=== PATIENT | male | born 1970 | race Caucasian/White ===

== ENCOUNTER 2021-03-07 11:09 | Outpatient (CLI) | payer BC, SELFPAY ==
[2021-03-07 20:35] LABS: Basophils Percent Auto 0.5 % (0.2-1.2); Eosinophils Absolute Auto 0.2 K/mm3 (0-0.3); Eosinophils Percent Auto 3.1 % (0-4.4); Hematocrit 44.8 % (42.0-52.0); Hemoglobin 14.4 g/dL (14.0-18.0); Immature Granulocyte Absolute 0.02 K/mm3 (0.00-0.031); Immature Granulocyte Percent A 0.3 % (0-0.5); Lymphocytes Absolute Auto 1.91 K/mm3 (0.9-3.2); Lymphocytes Percent Auto 30.9 % (18.3-44.2); Mean Corpuscular HGB Conc 32.1 g/dl (32-36); Mean Corpuscular Hemoglobin 30.1 pg (26-34); Mean Corpuscular Volume 93.5 fl (80-100); Mean Platelet Volume 11.1 fl (7.4-10.4); Monocytes Absolute Auto 0.4 K/mm3 (0.1-0.6); Monocytes Percent Auto 7.1 % (2.6-8.5); Neutrophils Absolute Auto 3.6 K/mm3 (1.3-6.7); Neutrophils Percent Auto 58.1 % (45.5-73.1); Platelet Count Result 203 k/mm3 (150-375); Red Blood Count 4.79 M/mm3 (4.6-6.20); Red Cell Distribution Width 13.4 % (11.5-14.5); White Blood Count 6.2 K/mm3 (4.5-10.0)
[2021-03-07 20:40] LABS: Alanine Aminotransferase 24 U/L (4-50); Albumin Level 4.3 g/dL (3.5-5.1); Alkaline Phosphatase 67 U/L (38-126); Anion Gap 6 mmol/L (8-16); Aspartate Amino Transferase 24 U/L (17-59); Bilirubin,Total 0.6 mg/dL (0.2-1.3); Blood Urea Nitrogen 15 mg/dL (9-20); Calcium 9.3 mg/dL (8.4-10.2); Carbon Dioxide 30 mmol/L (22-30); Chloride 100 mmol/L (98-107); Estimated Glomerular Filt Rate > 60; Glucose 96 mg/dL (65-110); Potassium 4.4 mmol/L (3.4-5.0); Sodium 136 mmol/L (137-145)
[2021-03-07 21:12] LABS: Prostate Specific Antigen 2.3 ng/mL (< OR = 4.0)
[2021-03-08 21:59] LABS: Hemoglobin A1C 5.7 % (<5.7)
== END 2021-03-07 11:10 | disposition home or self-care (01) ==
LOC: ANHBWCLAB 11:11
PROVIDERS: PCP Family Medicine; Visit Provider Family Medicine
DX: Z12.5 Encounter for screening for malignant neoplasm of prostate (principal); R73.9 Hyperglycemia, unspecified; Z00.00 Encounter for general adult medical examination without abnormal findings
CPT/HCPCS: 36415; 80053; 83036; 84153; 85025; G0103

== ENCOUNTER 2021-06-16 08:10 | Outpatient (CLI) | payer BC, SELFPAY ==
[2021-06-16 18:48] LABS: Hematocrit 43.9 % (42.0-52.0); Hemoglobin 13.8 g/dL (14.0-18.0); Mean Corpuscular HGB Conc 31.4 g/dl (32-36); Mean Corpuscular Hemoglobin 30.4 pg (26-34); Mean Corpuscular Volume 96.7 fl (80-100); Mean Platelet Volume 10.9 fl (7.4-10.4); Platelet Count Result 209 k/mm3 (150-375); Red Blood Count 4.54 M/mm3 (4.6-6.20); Red Cell Distribution Width 13.8 % (11.5-14.5); White Blood Count 5.4 K/mm3 (4.5-10.0)
[2021-06-16 18:56] LABS: Alanine Aminotransferase 33 U/L (4-50); Albumin Level 4.2 g/dL (3.5-5.1); Alkaline Phosphatase 71 U/L (38-126); Anion Gap 8 mmol/L (8-16); Aspartate Amino Transferase 31 U/L (17-59); Blood Urea Nitrogen 19 mg/dL (9-20); Calcium 8.7 mg/dL (8.4-10.2); Carbon Dioxide 26 mmol/L (22-30); Chloride 105 mmol/L (98-107); Estimated Glomerular Filt Rate > 60; Glucose 114 mg/dL (65-110); Potassium 4.2 mmol/L (3.4-5.0); Sodium 139 mmol/L (137-145)
[2021-06-16 19:06] LABS: Hemoglobin A1C 5.4 % (<5.7)
== END 2021-06-16 08:11 | disposition home or self-care (01) ==
LOC: ANHBWCLAB 08:11
PROVIDERS: PCP Family Medicine; Visit Provider Family Medicine
DX: R25.1 Tremor, unspecified (principal); R73.03 Prediabetes
CPT/HCPCS: 36415; 80053; 83036; 84443; 85027

== ENCOUNTER 2021-08-10 16:41 | Outpatient (CLI) | payer OTHER, SELFPAY ==
--- NOTE | ~2021-08-10 | MR_ITS ---
EXAMINATION: MR shoulder LT wo con DATE: 08/10/2021 17:19 INDICATION: Left shoulder pain TECHNIQUE: Magnetic resonance imaging (MRI) of the left shoulder was performed without intravenous co ntrast. Sequences included axial PD-weighted FS FSE, coronal oblique PD-weighted FS FSE, coronal obli que T2-weighted FS FSE, sagittal PD-weighted FS FSE, and sagittal T1-weighted SE. COMPARISON: Left shoulder radiographs dated 05/01/2021 FINDINGS: Coracoacromial arch: The acromion undersurface is curved in morphology (type II). The coracoacromial ligament is normal. M ild widening of the acromioclavicular joint space with changes likely prior distal clavicle resection . Rotator cuff: Suture anchors along the greater tuberosity on the footplate of the supraspinatus and infraspinatus t endons consistent with prior rotator cuff repair. Mild supraspinatus and infraspinatus tendinopathy w ithout evident residual/recurrent tear. The teres minor tendon is normal. The supraspinatus, infraspi natus and teres minor muscle bellies are normal. There is attenuation of the distal 5 cm the subscapu galdino tendon. There are foci of susceptibility artifact along the tendon near the level of the glenoi d where the tendon appears thicker. Finally there is moderate fatty atrophy and retraction of the sub cutaneous muscle belly. Appearance suggests prior subscapularis tendon tear repair with likely recurr ent tear and medial retraction although no measurable tear defect is appreciated. The bursal side of the tendon is intact and remains contiguous with the transverse humeral ligament. Biceps tendon, glenoid labrum and glenohumeral cartilage: Extra articular long head biceps tendon appears normal extending to a bicipital tenodesis with anchor ing screw at the cephalad aspect of the intertubercular groove. Postoperative change of prior anterio r labral tear repair with 3 suture anchors along the anterior rim of the glenoid. There is a tear yazan ng the posterior glenoid with 2 additional foci of susceptibility artifact without correlate on the p rior radiographs themselves related to labral repair but without suture anchors. Small frayed inferio r labrum consistent with additional degenerative tearing. Partial-thickness cartilage loss with anter ior and posterior predominance at the glenoid where it involves greater than 50% the cartilage thickn ess. Mild partial-thickness cartilage loss along the cephalad aspect of the humeral head. Small rubi nal osteophytes along the posterior to anteroinferior glenoid and along the inferomedial aspect of th e humeral head. Fluid: Physiologic amount of fluid in the glenohumeral joint and biceps tendon sheath. No loose osteochondr al bodies. Small amount of fluid in the subacromial/subdeltoid bursa consistent with mild bursitis. Bones: Normal marrow signal with no edema, fracture or pathologic marrow replacing process. IMPRESSION: 1. Mild to moderate glenohumeral osteoarthritis with change of prior labral repair along the anterior labrum and potentially also along the posterior labrum where there is an additional tear. Additional degenerative tearing along the anteroinferior labrum without repair. 2. Mild tendinopathy of the subscapularis, supraspinatus and infraspinatus tendons with intact appear ing tear of the supraspinatus and infraspinatus tendon and likely recurrent partial tear post repair of the subscapularis tendon as detailed above. Correlate with details of prior surgery and many are o utside imaging for comparison. 3. Mild subacromial/subdeltoid bursitis. 4. Change of prior distal clavicle resection and bicipital tenodesis. Reviewed, dictated and finalized at location B.
== END 2021-08-10 16:42 | disposition home or self-care (01) ==
PROVIDERS: PCP Family Medicine; Visit Provider Nurse Practitioner Family
DX: M19.012 Primary osteoarthritis, left shoulder (principal); M75.52 Bursitis of left shoulder
CPT/HCPCS: 73221

== ENCOUNTER 2021-11-14 06:52 | Outpatient (CLI) | payer OTHER, SELFPAY ==
--- NOTE | 2021-11-14 08:36 | WPDNEUROLOGY ---
Neurology EEG Report General Information Date of Study: 11/14/21 TEST Routine EEG DIAGNOSIS Tremors CONDITION OF RECORDING Awake, drowsy, and asleep EEG NUMBER [id number] CLINICAL HISTORY Patient reports he has been having episodes of coughing and then losing consciousness. Paperwork says he has tremors, when asked about that he says he only had tremors a couple of times. EEG DESCRIPTION During the awake state with eyes closed the background consists of 9 Hz posterior dominant rhythm which attenuates appropriately with eye opening. The recording is continuous. There is a well developed anterior-posterior gradient. No significant asymmetries of background activities are noted. With drowsiness there is was waxing and waning of the dominant rhythm with eventual replacement by a mixture of beta, alpha, and theta activity. As the patient enters stage II sleep, symmetrical spindles and K complexes are present. There are no epileptiform discharges or seizures during this recording. Photic stimulation did not elicit any abnormal response. IMPRESSION This is a normal routine EEG recorded in awake, drowsy, and asleep states. There are no electrographic seizures identified, nor are there any epileptiform discharges. Please note that a normal EEG cannot exclude a seizure disorder. Clinical correlation is recommended.
--- NOTE | 2021-11-14 11:00 | NEURO_ITS ---
Impression: # This is an abnormal study due to the presence of mild bilateral Carpal Tunnel Syndrome. # Needle/EMG exam was normal. # Clinical correlation recommended. Nerve Conduction Studies Anti Sensory Summary Table Stim Site NR Peak (ms) P-T Amp (?V) Site1 Site2 Delta-P (ms) Dist (cm) Jj (m/s) Left Median Anti Sensory (2-3nd Digit) Wrist 4.0 25.7 Wrist 2-3nd Digit 4.0 14.0 35 Wrist 4.0 22.7 Wrist 2-3nd Digit 4.0 14.0 35 Right Median Anti Sensory (2-3nd Digit) Wrist 3.9 15.2 Wrist 2-3nd Digit 3.9 14.0 36 Wrist 3.9 22.2 Wrist 2-3nd Digit 3.9 14.0 36 Left Radial Anti Sensory (Base 1st Digit) Wrist 2.4 18.3 Wrist Base 1st Digit 2.4 0.0 Right Radial Anti Sensory (Base 1st Digit) Wrist 2.3 39.1 Wrist Base 1st Digit 2.3 0.0 Left Ulnar Anti Sensory (5th Digit) Wrist 2.9 3.8 Wrist 5th Digit 2.9 14.0 48 Right Ulnar Anti Sensory (5th Digit) Wrist 2.9 3.2 Wrist 5th Digit 2.9 16.0 55 Motor Summary Table Stim Site NR Onset (ms) O-P Amp (mV) Site1 Site2 Delta-0 (ms) Dist (cm) Jj (m/s) Left Median Motor (Abd Poll Brev) Wrist 4.0 5.4 Elbow Wrist 4.2 23.0 55 Elbow 8.2 5.1 Right Median Motor (Abd Poll Brev) Wrist 3.8 9.2 Elbow Wrist 5.0 28.0 56 Elbow 8.8 8.2 Left Ulnar Motor (Abd Dig Minimi) Wrist 2.5 3.5 A Elbow Wrist 5.3 29.0 55 A Elbow 7.8 3.0 B Elbow Wrist 4.0 22.0 55 B Elbow 6.5 3.2 Right Ulnar Motor (Abd Dig Minimi) Wrist 2.4 3.6 A Elbow Wrist 6.6 30.0 45 A Elbow 9.0 2.9 B Elbow Wrist 4.6 21.0 46 B Elbow 7.0 2.4 F Wave Studies NR F-Lat (ms) L-R F-Lat (ms) Left Median (Mrkrs) (Abd Poll Brev) 28.21 1.64 Right Median (Mrkrs) (Abd Poll Brev) 26.57 1.64 Left Ulnar (Mrkrs) (Abd Dig Min) 27.91 0.46 Right Ulnar (Mrkrs) (Abd Dig Min) 27.45 0.46 EMG Side Muscle Nerve Root Ins Act Fibs Amp Dur Recrt Comment Right 1stDorInt Ulnar C8-T1 Nml Nml Nml Nml Nml Right Ext Indicis Radial (Post Int) C7-8 Nml Nml Nml Nml Nml Right Ext Digitorum Radial (Post Int) C7-8 Nml Nml Nml Nml Nml Right BrachioRad Radial C5-6 Nml Nml Nml Nml Nml Right PronatorTeres Median C6-7 Nml Nml Nml Nml Nml Right Abd Poll Brev Median C8-T1 Nml Nml Nml Nml Nml Left 1stDorInt Ulnar C8-T1 Nml Nml Nml Nml Nml Left Ext Indicis Radial (Post Int) C7-8 Nml Nml Nml Nml Nml Left Ext Digitorum Radial (Post Int) C7-8 Nml Nml Nml Nml Nml Left BrachioRad Radial C5-6 Nml Nml Nml Nml Nml Left PronatorTeres Median C6-7 Nml Nml Nml Nml Nml Left Abd Poll Brev Median C8-T1 Nml Nml Nml Nml Nml MTDD
== END 2021-11-14 06:53 | disposition home or self-care (01) ==
LOC: ANHNEURO 06:53
PROVIDERS: PCP Family Medicine; Visit Provider Psychiatry & Neurology Neurology
DX: R25.1 Tremor, unspecified (principal); G56.03 Carpal tunnel syndrome, bilateral upper limbs
CPT/HCPCS: 95816; 95886; 95911

== ENCOUNTER 2022-05-17 12:01 | Outpatient (CLI) | payer OTHER, SELFPAY ==
[2022-05-17 19:36] LABS: Alanine Aminotransferase 27 U/L (6-50); Albumin Level 4.5 g/dL (3.5-5.1); Alkaline Phosphatase 75 U/L (38-126); Anion Gap 6 mmol/L (8-16); Aspartate Amino Transferase 40 U/L (17-59); Bilirubin,Total 0.5 mg/dL (0.2-1.3); Blood Urea Nitrogen 14 mg/dL (9-20); Calcium 8.9 mg/dL (8.4-10.2); Carbon Dioxide 31 mmol/L (22-30); Chloride 103 mmol/L (98-107); Estimated Glomerular Filt Rate > 60; Glucose 99 mg/dL (65-110); Potassium 4.2 mmol/L (3.4-5.0); Sodium 140 mmol/L (137-145)
[2022-05-17 20:24] LABS: Hemoglobin A1C 5.4 % (<5.7)
[2022-05-17 21:09] LABS: Basophils Percent Auto 0.3 % (0.2-1.2); Eosinophils Absolute Auto 0.2 K/mm3 (0-0.3); Eosinophils Percent Auto 3.1 % (0-4.4); Hematocrit 44.1 % (42.0-52.0); Hemoglobin 14.1 g/dL (14.0-18.0); Immature Granulocyte Absolute 0.03 K/mm3 (0.00-0.031); Immature Granulocyte Percent A 0.4 % (0-0.5); Lymphocytes Absolute Auto 2.49 K/mm3 (0.9-3.2); Lymphocytes Percent Auto 33.6 % (18.3-44.2); Mean Corpuscular Hemoglobin 29.3 pg (26-34); Mean Corpuscular Volume 91.5 fl (80-100); Mean Platelet Volume 11.1 fl (7.4-10.4); Monocytes Absolute Auto 0.5 K/mm3 (0.1-0.6); Monocytes Percent Auto 6.5 % (2.6-8.5); Neutrophils Absolute Auto 4.2 K/mm3 (1.3-6.7); Neutrophils Percent Auto 56.1 % (45.5-73.1); Platelet Count Result 244 k/mm3 (150-375); Red Blood Count 4.82 M/mm3 (4.6-6.20); White Blood Count 7.4 K/mm3 (4.5-10.0)
== END 2022-05-17 12:02 | disposition home or self-care (01) ==
LOC: ANHBWCLAB 12:03
PROVIDERS: PCP Family Medicine; Visit Provider Family Medicine
DX: E11.9 Type 2 diabetes mellitus without complications (principal); Z00.00 Encounter for general adult medical examination without abnormal findings; R55 Syncope and collapse; G47.33 Obstructive sleep apnea (adult) (pediatric)
CPT/HCPCS: 36415; 80053; 83036; 85025

== ENCOUNTER 2023-12-23 22:36 | Emergency (ER) | payer OTHER, SELFPAY ==
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
--- NOTE | ~2023-12-23 | CT_ITS ---
Noncontrast CT scan of the cervical spine Technique: Multiple contiguous axial [address] images of the cervical spine were obtained and rec onstructed in 2D sagittal and coronal planes on the acquisition scanner. Dose reduction technique was used on this scan by utilizing automated exposure control, adjustment of the mA and/or kV according to patient size. The dose-length product (DLP) was 500.22 mGy-cm. Clinical History: Pain Findings: No acute fracture or subluxation. There is mild reversal normal cervical lordosis. There is severe degenerative disc narrowing from C3 through C7. There is extensive facet arthropathy at the c ervical spine. There is bilateral neural foraminal narrowing at C3-C4, C4-C5, C5 and C6, C6-C7. There is moderate to severe canal stenosis at C6-C7. There is moderate canal stenosis at C5-C6. There is p robable mild canal stenosis at C4-C5. No prevertebral soft tissue swelling. Impression: No fracture or subluxation of the cervical spine. Severe degenerative spondylosis, as above. Reviewed, dictated and finalized at location M. Impression: No fracture or subluxation of the cervical spine. Severe degenerative spondylosis, as above.
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
[2023-12-23 23:00] VITALS: BP 142/90; PULSE 71; RESP 17; TEMP 36.1; O2SAT 100
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
[2023-12-24] MEDS: ACETAMINOPHEN 500 MG TABLET 1000 MG PO (01:01)
[2023-12-24 02:20] VITALS: BP 138/88; PULSE 74; RESP 15; O2SAT 100
== END 2023-12-24 02:21 | disposition home or self-care (01) ==
PROVIDERS: Emergency Provider Physician Assistant; PCP Family Medicine
DX: S16.1XXA Strain of muscle, fascia and tendon at neck level, initial encounter (principal); R73.03 Prediabetes; Z87.891 Personal history of nicotine dependence; V49.40XA Driver injured in collision with unspecified motor vehicles in traffic accident, initial encounter
CPT/HCPCS: 70450; 72125; 72128; 72131; 99284; A9270

== ENCOUNTER 2024-01-03 12:37 | Outpatient (CLI) | payer OTHER, SELFPAY ==
--- NOTE | ~2024-01-03 | CT_ITS ---
CT Scan of the Chest without Contrast: Clinical Indication: Lung cancer screening, nicotine dependence Technique: Contiguous sections were acquired throughout the chest without intravenous contrast. Dose reduction technique was used on this scan by utilizing automated exposure control and iterative recon struction technique. The dose-length product (DLP) was 247.58 mGy-cm. Findings: There is no evidence of any significant mediastinal, hilar or axillary lymphadenopathy. The mediastin al soft tissues appear normal. There is no evidence of pleural or pericardial effusion. The lungs are clear. No pulmonary nodules or infiltrates are noted. Images through the upper abdomen reveal no abnormalities. Impression: Lung RADS 1: Negative. 12 month follow-up screening CT advised. Reviewed, dictated and finalized at location . Impression: Lung RADS 1: Negative. 12 month follow-up screening CT advised.
== END 2024-01-03 12:38 | disposition home or self-care (01) ==
LOC: MICIMG 12:38
PROVIDERS: PCP Family Medicine; Visit Provider Family Medicine
DX: Z12.2 Encounter for screening for malignant neoplasm of respiratory organs (principal); Z87.891 Personal history of nicotine dependence
CPT/HCPCS: 71271

== ENCOUNTER 2024-01-04 20:54 | Emergency (ER) | payer OTHER, SELFPAY ==
[2024-01-04] VITALS (7 sets, daily range): BP systolic 134–160; BP diastolic 80–96; PULSE 63–66; RESP 15–19; TEMP 36.7; O2SAT 97–99
--- NOTE | ~2024-01-04 | XR_ITS ---
XR chest 2V Ordering provider: Wendy Lundberg PA-C History: 53 years Male with . cp . Comparison: None. FINDINGS: MEDIASTINUM: The cardiac silhouette is not enlarged. LUNGS: No infiltrates, effusions or pneumothorax. Prominent markings in the lower lobes. OTHER: No free air under the diaphragm. IMPRESSION: Prominent markings in the lower lobes. Early pneumonitis cannot be excluded. Follow-up advised. Reviewed, dictated and finalized at location A. IMPRESSION: Prominent markings in the lower lobes. Early pneumonitis cannot be excluded. Fo llow-up advised.
--- NOTE | ~2024-01-04 | CT_ITS ---
Clinical Indication: Chest pain CT Scan of the Chest with Contrast: Technique: Contiguous sections were acquired throughout the chest after intravenous administration of 100 cc of Omnipaque 350. Dose reduction technique was used on this scan by utilizing automated expos ure control and iterative reconstruction technique. The dose-length product (DLP) was 859.16 mGy-cm. COMPARISON: 01/03/2024 Findings: There is no evidence of any significant mediastinal, hilar or axillary lymphadenopathy. There is no f illing defect in the pulmonary arterial tree to suggest pulmonary embolus. There is no evidence of ao rtic dissection or aneurysm. There is no evidence of pleural or pericardial effusion. The lungs are clear. No pulmonary nodules or infiltrates are noted. Images through the upper abdomen reveal no abnormalities. Impression: No evidence of pulmonary embolus, aortic dissection, or aortic aneurysm. Clear lungs. Reviewed, dictated and finalized at [facility]. Impression: No evidence of pulmonary embolus, aortic dissection, or aortic aneurysm. Clear lungs.
--- NOTE | 2024-01-04 20:54 | ECG_ITS ---
Test Date: 2024-01-04 20:58:56 Measurements Intervals [place] Rate: 65 P: 66 MA: 124 QRS: 48 QRSD: 106 T: 42 QT: 363 QTc: 377 Interpretive Statements SINUS RHYTHM NORMAL ELECTROCARDIOGRAM No previous ECG available for comparison Electronically Signed On 01-05-2024 09:00:06 CDT by Brandon Borja M.D.
[2024-01-04 22:37] LABS: Basophils Absolute Auto 0.1 K/mm3 (0.0-0.1); Basophils Percent Auto 0.4 % (0.2-1.2); Eosinophils Absolute Auto 0.4 K/mm3 (0-0.3); Hematocrit 40.6 % (42.0-52.0); Hemoglobin 13.4 g/dL (14.0-18.0); Immature Granulocyte Absolute 0.12 K/mm3 (0.00-0.031); Lymphocytes Percent Auto 25.6 % (18.3-44.2); Mean Corpuscular Hemoglobin 31.3 pg (26-34); Mean Corpuscular Volume 94.9 fl (80-100); Mean Platelet Volume 10.2 fl (7.4-10.4); Monocytes Absolute Auto 0.7 K/mm3 (0.1-0.6); Monocytes Percent Auto 5.7 % (2.6-8.5); Neutrophils Absolute Auto 7.5 K/mm3 (1.3-6.7); Neutrophils Percent Auto 64.3 % (45.5-73.1); Platelet Count Result 204 k/mm3 (150-375); Red Blood Count 4.28 M/mm3 (4.6-6.20); Red Cell Distribution Width 13.6 % (11.5-14.5); White Blood Count 11.7 K/mm3 (4.5-10.0)
[2024-01-04 22:50] LABS: INR 0.9; Prothrombin Time 12.5 Seconds (11.1-14.7)
[2024-01-04 22:51] LABS: Partial Thromboplastin Time 25.5 Seconds (22.3-36.8)
[2024-01-04 22:52] LABS: Alanine Aminotransferase 17 U/L (6-50); Albumin Level 3.8 g/dL (3.5-5.1); Alkaline Phosphatase 54 U/L (38-126); Anion Gap 3 mmol/L (4-12); Aspartate Amino Transferase 22 U/L (17-59); Bilirubin,Total 0.4 mg/dL (0.2-1.3); Blood Urea Nitrogen 23 mg/dL (9-20); Calcium 8.6 mg/dL (8.4-10.2); Carbon Dioxide 31 mmol/L (22-30); Chloride 102 mmol/L (98-107); Estimated CRCL calculation 99 ml/min; Estimated Glomerular Filt Rate > 60; Glucose 106 mg/dL (65-110); Lipase 78 U/L (23-300); Potassium 3.7 mmol/L (3.4-5.0); Sodium 136 mmol/L (137-145)
[2024-01-04 23:03] LABS: Troponin I < 0.012 ng/mL (0.000-0.034)
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
--- NOTE | 2024-01-04 23:43 | ECG_ITS ---
Test Date: 2024-01-04 23:49:06 Measurements Intervals [place] Rate: 59 P: 66 OR: 130 QRS: 55 QRSD: 106 T: 48 QT: 392 QTc: 389 Interpretive Statements SINUS BRADYCARDIA OTHERWISE NORMAL ECG Compared to ECG 01/04/2024 20:58:56 NO SIGNIFICANT CHANGE Electronically Signed On 01-05-2024 09:06:49 CDT by Brandon Borja M.D.
[2024-01-05] VITALS (11 sets, daily range): BP systolic 115–126; BP diastolic 76–79; PULSE 59–74; RESP 15–24; O2SAT 97–99
[2024-01-05 00:15] LABS: Troponin I < 0.012 ng/mL (0.000-0.034)
== END 2024-01-05 02:36 | disposition home or self-care (01) ==
PROVIDERS: Physician Assistant; Emergency Provider Emergency Medicine; PCP Family Medicine
DX: R07.9 Chest pain, unspecified (principal); Z87.891 Personal history of nicotine dependence
CPT/HCPCS: 36415; 71046; 71275; 80053; 83690; 84484; 85025; 85610; 85730; 93005; 99284; Q9967

== ENCOUNTER 2024-01-18 08:46 | Outpatient (CLI) | payer OTHER, SELFPAY ==
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
--- NOTE | ~2024-01-18 | MR_ITS ---
MRI of the cervical spine Clinical History: Cervicalgia Technique: Axial T2-weighted and gradient images, and sagittal T1-weighted, T2-weighted, and STIR tonja ges were acquired. Findings: There is no fracture or subluxation of the cervical spine. There is mild reversal normal ce rvical lordosis. No suspicious bone marrow signal abnormality seen. At C2-C3, there is mild to moderate degenerative disc narrowing. There is minimal disc osteophyte com plex and mild facet arthropathy. No central canal stenosis or cord compression. Neural foramina are p reserved. At C3-C4, there is advanced degenerative disc 9. Disc ossify complex results in mild canal stenosis a nd minimal flattening the ventral cord. There is bilateral neural foraminal narrowing, right worse th an left. At C4-C5, there is advanced degenerative disc narrowing. There is mild disc ossify complex with mild to moderate canal stenosis and minimal flattening the ventral cord. There is bilateral neural foramin al narrowing, mild overall degree. At C5-C6, there is advanced degenerative disc 9. Disc osteophyte complex results in moderate to sever e spinal canal stenosis with mild cord compression. There is bilateral neural foraminal narrowing. At C6-C7, there is advanced degenerative disc narrowing. Mild disc ossify complex results in moderate canal stenosis and minimal flattening the ventral cord. There is severe bilateral neural foraminal n arrowing. At C7-T1, there is disc osteophyte complex and facet arthropathy, resulting in moderate canal stenosi s and cord compression at this level. There is bilateral neural foraminal narrowing. No abnormal signal evident in the spinal cord. Paravertebral soft tissues are unremarkable. Impression: Severe degenerative spondylosis of the cervical spine, as detailed above. There is multilevel neural foraminal narrowing, canal stenosis, and mild cord compression/ventral flattening. Reversal of the normal cervical lordosis with extensive advanced degenerative disc narrowing. Reviewed, dictated and finalized at location M. R INSTALLER Impression: Severe degenerative spondylosis of the cervical spine, as detailed above. There is multilevel neural foraminal narrowing, canal stenosis, and mild cord compre ssion/ventral flattening. Reversal of the normal cervical lordosis with extensive advanced degenerative d isc narrowing.
== END 2024-01-18 08:47 | disposition home or self-care (01) ==
LOC: MICIMG 08:47
PROVIDERS: PCP Family Medicine; Visit Provider Nurse Practitioner Family
DX: M47.813 Spondylosis without myelopathy or radiculopathy, cervicothoracic region (principal); M47.812 Spondylosis without myelopathy or radiculopathy, cervical region; M48.02 Spinal stenosis, cervical region; M48.03 Spinal stenosis, cervicothoracic region; G95.20 Unspecified cord compression; M54.2 Cervicalgia; V87.7XXA Person injured in collision between other specified motor vehicles (traffic), initial encounter; Z85.89 Personal history of malignant neoplasm of other organs and systems
CPT/HCPCS: 70547; 72141

== ENCOUNTER 2024-03-24 07:01 | Outpatient (CLI) | payer OTHER, SELFPAY ==
--- NOTE | ~2024-03-24 | MR_ITS ---
EXAMINATION: MR lumbar spine wo con DATE: 03/24/2024 07:31 INDICATION: Lumbar radiculopathy. TECHNIQUE: Magnetic resonance imaging (MRI) of the lumbar spine was performed without intravenous con trast. Sequences included sagittal T2-weighted FSE, sagittal T2-weighted FS FSE, sagittal T1-weighted FSE, and axial T2-weighted FSE. COMPARISON: CT lumbar spine 12/24/2023 FINDINGS: There is 2 mm retrolisthesis of L3 on L4. There is mild chronic anterior wedging of T12 bruno tebral body. There is mildly decreased disc height at L2-L3 and moderately decreased disc height at L 3-L4, L4-L5, and L5-S1. The distal spinal cord signal intensity is normal. The conus medullaris is at L1. The following disc levels are specifically discussed: L1-L2: The disc does not extend beyond the endplate margin. There is mild bilateral facet joint osteo arthritis. There is no neural foraminal stenosis. There is no central canal stenosis. L2-L3: The disc is bulging and has an annular fissure. There is mild right and moderate left facet ermelinda int osteoarthritis. There is mild bilateral neural foraminal stenosis. There is mild central canal st enosis. L3-L4: The disc is bulging and has an annular fissure. There is mild bilateral facet joint osteoarthr itis. There is mild bilateral neural foraminal stenosis. There is mild central canal stenosis. L4-L5: The disc is bulging and has an annular fissure. There is mild bilateral facet joint osteoarthr itis. There is mild bilateral neural foraminal stenosis. There is mild central canal stenosis. L5-S1: The disc is bulging and has an annular fissure. There is severe bilateral facet joint osteoart hritis. There is mild bilateral neural foraminal stenosis. There is mild central canal stenosis. IMPRESSION: 1. Moderate lumbar spondylosis, stable from 12/24/2023. Reviewed, dictated and finalized at location A. HIP LEADER
== END 2024-03-24 07:02 | disposition home or self-care (01) ==
LOC: MICIMG 07:04
PROVIDERS: PCP Family Medicine
DX: M47.816 Spondylosis without myelopathy or radiculopathy, lumbar region (principal)
CPT/HCPCS: 72148

== ENCOUNTER 2024-10-21 16:35 | Outpatient (RCR) | payer OTHER, SELFPAY ==
--- NOTE | 2024-10-21 17:42 | PTOPEVDC ---
Assessment and note entered by Isa Crowe, PT Thank you for referring Aden Burton to [facility].? An evaluation has been completed. No further treatment is needed. Evaluation Information Assessment Status Evaluation ICD-10 Condition Codes (PT) Cervicalgia M54.2,Pain in low back M54.50 Subjective Information Pt has a very hard time describing his limitations and presented to the clinic smelling very strongly of marijuana. The patient displayed physical characteristics of blood shot eyes, slow and slurred speech, and the inability to keep his eyes open. He exhibited difficulty answering open ended questions necessary for obtaining pertinent medical history and subjective information. He reports his pain has been there for a few months and thought he was coming here to see a chiropractor for his neck. He reports using muscle relaxers and his sleep is disrupted severely because of neck and back pain. He reports he would not be able to work if he didn't push himself to work and stand but it hurts. He reports fluid coming out of his neck but then stated it was from his ear. Reported Pain Level Pain Score Moderate Pain: [place] Additional Pain Score Comments unable to provide subjective pain using numeric or visual analog scale moderate low back and R post thigh pain moderate cervical pain Assessment PT Clinical Summary Pt has a very hard time describing his limitations and presented to the clinic smelling very strongly of marijuana. The patient displayed physical characteristics of blood shot eyes, slow and slurred speech, and the inability to keep his eyes open. He exhibited difficulty answering open ended questions necessary for obtaining pertinent medical history and subjective information. Quality of subjective and objective information questionable as to pt presentation and comprehension of instructions. Pt demonstrated deficits in gross cervical and lumbar ROM as observed by general mobility. Pt declined further therapy services as he would not be able to devote time to formal appointments with his job. pt requested to try an independent HEP and call to reschedule with future concerns. He will try to contact a chiropractor as well. Plan of Care PT Services Indicated Yes Treatment Frequency and pt to DC from PT, wants to try I with HEP Duration
== END 2024-10-22 08:20 | disposition home or self-care (01) ==
LOC: ANHPT 16:35
PROVIDERS: PCP Family Medicine; Visit Provider Family Medicine
DX: M54.50 Low back pain, unspecified (principal)
CPT/HCPCS: 97110; 97140; 97162